=== PATIENT | female | born 1955 | race Caucasian/White ===

== ENCOUNTER 2020-06-09 18:29 | Emergency (ER) | payer MEDICARE, SELFPAY ==
[~2020-06-09] VITALS: Ht 157.5 cm; Wt 65.8 kg
--- NOTE | 2020-06-09 19:03 | NUR ---
Placed in room 7 . Placed on monitor car operator, blood pressure machine and pulse oximeter. To gown for exam. Side rails up. Report given to ENRIQUE SYED.
[2020-06-09 19:17] VITALS: BP_SYST 130
--- NOTE | 2020-06-09 19:45 | NUR ---
DR. WILLAMS AT BEDSIDE. AWAITING ORDERS
--- NOTE | 2020-06-09 19:50 | NUR ---
PT BIB [facility] C/O CHEST PAIN FOR 24 HOURS RADIATING TOWARDS BACK. PAIN LEVEL 9/10. ALS GAVE 3 DOSES OF NITRO. PAIN IMPROVED TO 2/10. PT DENIES SOB. PT TESTED POSITIVE FOR COVID 19 ON 05/05/2020. PT SYMPTOMS FEVER AND CHILLS NO COUGH. PT ALSO C/O EPIGASTRIC PAIN NON RADIATING SINCE YESTERDAY. PT DENIES N/V/D SHE TOOK [place] WITH MILD RELIEF. PT LAYING IN BED IN MILD DISTRESS. 20G LEFT AC IV PLACED BY FIRE. BED LOCKED IN LOWEST POSITION. WILL CONTINUE TO MONITOR
[2020-06-09] MEDS ORDERED: NACL 0.9% 1,000 ML IV ONE (20:00)
[2020-06-09] MEDS ORDERED: MORPHINE 2 MG/ML INJ. SYRINGE IVP ONE (20:00)
[2020-06-09] MEDS ORDERED: PANTOPRAZOLE SODIUM 40 MG/VIAL (PROTONIX) IVP ONE (20:00)
[2020-06-09] MEDS ORDERED: MORPHINE 2 MG/ML INJ. SYRINGE ONE (20:09)
[2020-06-09] MEDS ORDERED: fentaNYL CITRATE/PF 100 MCG/2 ML AMP IVP ONE (20:30)
--- NOTE | 2020-06-09 20:30 | NUR ---
PT LAYING IN BED. NO SIGNS OR SYMPTOMS OF DISTRESS NOTED. WILL CONTINUE TO MONITOR.
[2020-06-09 20:44] LABS: BASOPHILS % (AUTO) 0.2 % (0.0-2.0); HEMATOCRIT 38.9 % (36-48); HEMOGLOBIN 13.2 g/dL (12.0-16.0); LYMPHOCYTES # (AUTO) 0.7 K/uL (1.0-5.5); LYMPHOCYTES % (AUTO) 8.9 % (20.5-51.5); MEAN CORPUSCULAR HEMOGLOBIN 31 pg (27-31); MEAN CORPUSCULAR HGB CONC 34 % (32-36); MEAN CORPUSCULAR VOLUME 90 fL (79.0-98.0); MONOCYTES # (AUTO) 0.4 K/uL (0.0-1.0); MONOCYTES % (AUTO) 5.6 % (1.7-9.3); NEUTROPHILS # (AUTO) 6.4 K/uL (1.8-7.7); NEUTROPHILS % (AUTO) 85.3 % (40.0-70.0); PLATELET COUNT (AUTO) 249 K/uL (130-430); RED BLOOD CELL COUNT(AUTO) 4.33 MIL/uL (4.2-6.2); RED CELL DISTRIBUTION WIDTH 12.8 % (9.0-15.0); WHITE BLOOD COUNT (AUTO) 7.5 K/uL (4.8-10.8)
[2020-06-09 20:52] LABS: CALCIUM 7.7 mg/dL (8.4-11.0); CREATININE 0.87 mg/dL (0.55-1.30)
[2020-06-09 20:58] LABS: ALBUMIN 3.2 g/dL (3.4-4.8); TOTAL BILIRUBIN 0.4 mg/dL (0.0-1.0)
[2020-06-09] MEDS ORDERED: AZITHROMYCIN 500 MG in NS 250 ML IV ONE (21:00)
[2020-06-09] MEDS ORDERED: AZITHROMYCIN 500 MG/VIAL (ZITHROMAX) IV ONE (21:12)
--- NOTE | 2020-06-09 21:28 | NUR ---
PT LAYING IN BED. NO SIGNS OR SYMPTOMS OF DISTRESS NOTED. WILL CONTINUE TO MONITOR.
--- NOTE | 2020-06-09 22:05 | NUR ---
PT LAYING IN BED. PT C/O THROAT PAIN. NO DIFFICULTY SWALLOWING. NO SOB NOTED. O2 SATURATION 97%. ER MD INFORMED. WILL CONTINUE TO MONITOR.
[2020-06-09] MEDS ORDERED: LIDOCAINE VISCOUS 2%, 15 ML UDC MM ONE (22:15)
--- NOTE | 2020-06-09 23:51 | NUR ---
Dr. Bernal in bed 7 speaking with patient about transfer to [place].
[2020-06-10] MEDS ORDERED: fentaNYL CITRATE/PF 100 MCG/2 ML AMP IVP ONE (00:15)
[2020-06-10] MEDS ORDERED: MAG HYDROX/AL HYDROX/SIMETH 30 ML, DICYCLOMINE HCL 20 MG, LIDOCAINE VISCOUS 2% 15ML (PO... PO ONE ×3 (00:15)
[2020-06-10] MEDS ORDERED: NS 500 ML IV ONE (00:30)
--- NOTE | 2020-06-10 00:30 | NUR ---
[facility] MADE AWARE THAT PATIENT WILL BE DISCHARGED AND SENT BACK TO ISOLATION UNIT. INSTRUCTED TO DISCHARGE PATIENT IN BLS UNIT BACK TO [address] [place] [address] TO SECURITY DESK. Addendum: 06/10/20 at 0103 by SDN[facility]PLR [facility] RN PHONE NUMBER [phone]
--- NOTE | 2020-06-10 01:21 | NUR ---
[facility] ARRIVED TO TRANSPORT PATIENT BACK TO [facility].
--- NOTE | 2020-06-10 01:30 | NUR ---
Patient given written and verbal discharge instructions and verbalizes understanding. ER MD discussed with patient the results and treatment provided. Patient in stable condition. ID arm band removed. IV catheter removed intact and dressing applied, no active bleeding. Rx of ZITHROMAX, TRAMADOL, AND PROTONIX given. Patient educated on pain management and to follow up with PMD. Pain Scale 1/10. Opportunity for questions provided and answered. Medication side effect fact sheet provided.
--- NOTE | 2020-06-10 01:36 | NUR ---
spoke with YEV to let him know results of both troponin levels. Let him know ambulance is here to [facility] patient and will be arriving in about 20mins.
[2020-06-10 01:43] VITALS: BP_SYST 123
--- NOTE | 2020-06-10 01:43 | NUR ---
PT DISCHARGED WITH [facility] TO BE TRANSPORTED BACK TO [facility] AT [facility]. PT STABLE. SUMMARY REPORT PROVIDED.
== END 2020-06-10 01:43 | disposition home or self-care (01) ==
LOC: SED 18:29 → EDBD 18:29 → SED 06-10 01:43
DX: R10.13 Epigastric pain (principal); R50.9 Fever, unspecified
CPT/HCPCS: 36415; 71045; 80053; 83605; 83690; 83880; 84484; 85025; 86403; 87040; 87081; 93005; 96361 ×2; 96365; 96375; 96376; 99285; C9113; J0456; J2001 ×2; J2270; J3010 ×2; J7030 ×2